=== PATIENT | male | born 1975 | race African-American/Black ===

== ENCOUNTER 2018-03-17 10:42 | Emergency (ER) | payer OTHER ==
[~2018-03-17] VITALS: Ht 185.4 cm; Wt 80.0 kg
[~2018-03-17 10:42] MED LIST: ALD100 PO; FURO40TA5 MT; L25 PO
[2018-03-17] MEDS ORDERED: benazepril (11:22)
[2018-03-17] MEDS ORDERED: carvedilol (11:22)
[2018-03-17] MEDS ORDERED: KETOROLAC 60MG/2ML VIAL IM ONE (11:45)
[2018-03-17 12:33] VITALS: BP 152/105
[2018-03-17 12:34] LABS: CHLORIDE 105 mEq/L (98-107)
== END 2018-03-17 14:28 | disposition home or self-care (01) ==
LOC: ER 10:42
DX: M10.9 Gout, unspecified (principal); I10 Essential (primary) hypertension; E11.9 Type 2 diabetes mellitus without complications; F17.200 Nicotine dependence, unspecified, uncomplicated; Z79.899 Other long term (current) drug therapy
CPT/HCPCS: 36415; 73630; 80048; 84550; 96372; 99284; J1885

== ENCOUNTER 2018-03-25 08:29 | Emergency (ER) | payer OTHER ==
[~2018-03-25] VITALS: Ht 185.4 cm; Wt 82.0 kg
[~2018-03-25 08:29] MED LIST changes: +benazepril; +carvedilol
[2018-03-25] MEDS ORDERED: ONDANSETRON HCL 4MG/2ML INJ IV STA (10:04)
[2018-03-25] MEDS ORDERED: CLONIDINE 0.1MG TABLET PO ONE (10:15)
[2018-03-25 10:28] LABS: EOSINOPHILS % 0.4 % (0.0-5.0); HEMATOCRIT. 46.9 % (42.0-52.0); HEMOGLOBIN. 15.9 g/dL (14.0-18.0); LYMPHOCYTES % 33.4 % (20.0-50.0); MEAN CORPUSCULAR VOLUME 103.6 fL (80.0-94.0); MEAN PLATELET VOLUME 9.2 fl (7.4-10.4); MONOCYTES % 12.6 % (2.0-8.0); NEUTROPHILS % 52.6 % (40.0-76.0); PLATELET 176 x1000/uL (130-400); RED BLOOD CELL COUNT 4.53 mill/uL (4.7-6.1); RED CELL DISTRIBUTION WIDTH 13.6 % (11.6-14.6)
[2018-03-25 10:34] LABS: CLARITY URINE CLEAR (CLEAR); COLOR URINE DARK YELLOW (YELLOW); KETONES URINE NEGATIVE (NEGATIVE); LEUKOCYTE ESTERASE URINE TRACE (NEGATIVE); NITRITE URINE POSITIVE (NEGATIVE); OCCULT BLOOD URINE NEGATIVE (NEGATIVE); PROTEIN URINE 2+ (NEGATIVE); SPECIFIC GRAVITY URINE 1.023 (1.005-1.030)
[2018-03-25 10:35] LABS: CHLORIDE 102 mEq/L (98-107)
[2018-03-25] MEDS ORDERED: SULFAMETHOXAZOLE/TRIMETHOPRIM 800/160MG TABLET PO ONE (11:00)
[2018-03-25] MEDS ORDERED: FUROSEMIDE 20MG/2ML VIAL IVP ONE (11:00)
[2018-03-25] MEDS ORDERED: ASPIRIN 81MG TABLET PO ONE (11:00)
[2018-03-25] MEDS ORDERED: FUROSEMIDE 40MG/4ML VIAL IVP SCH ×2 (13:15→17:00)
[2018-03-25] MEDS ORDERED: CLONIDINE 0.1MG TABLET PO PRN (13:15)
[2018-03-25] MEDS ORDERED: CEFTRIAXONE 1 G PREMIX 50 ML IV SCH (13:15)
[2018-03-25] MEDS ORDERED: POTASSIUM CHLORIDE 20MEQ TABLET SR PO SCH (13:15)
[2018-03-25 15:23] VITALS: BP 130/90
[2018-03-25 20:22] LABS: *BARBITURATES SCREEN URINE NEGATIVE (NEGATIVE)
[2018-03-25 20:23] LABS: *BENZODIAZEPINES SCREEN URINE NEGATIVE (NEGATIVE); *COCAINE SCREEN URINE NEGATIVE (NEGATIVE); CANNABINOID URINE SCREEN NEGATIVE (NEGATIVE); METHADONE URINE SCREEN NEGATIVE (NEGATIVE); OPIATES URINE SCREEN NEGATIVE (NEGATIVE); PHENCYCLIDINE URINE SCREEN NEGATIVE (NEGATIVE)
[2018-03-25 20:24] LABS: *AMPHETAMINES SCREEN URINE NEGATIVE (NEGATIVE)
[2018-03-25] MEDS ORDERED: CARVEDILOL 6.25 MG TABLET PO SCH (21:00)
[2018-03-26] MEDS ORDERED: ASPIRIN 81MG EC TABLET PO SCH (09:00)
[2018-03-26] MEDS ORDERED: LOSARTAN POTASSIUM 25 MG TABLET PO SCH (09:00)
== END 2018-03-25 18:22 | disposition left against medical advice (07) ==
LOC: ER 08:29 → EDBEDREQTM 11:26 → EDBEDREQ 11:26 → ENRESERV 15:30 → CANRESERV 15:30 → CANBEDREQ 15:47 → ER 18:22
DX: I11.0 Hypertensive heart disease with heart failure (principal); I50.9 Heart failure, unspecified; N39.0 Urinary tract infection, site not specified; E11.9 Type 2 diabetes mellitus without complications; F17.200 Nicotine dependence, unspecified, uncomplicated; Z79.899 Other long term (current) drug therapy
CPT/HCPCS: 36415; 71045; 80053; 80061; 80305; 81003; 83690; 83880; 84443; 84484; 85025; 87086; 93005; 93970; 96374; 96375; 99284; J1940; J2405

== ENCOUNTER 2018-06-25 20:58 | Emergency (ER) | payer OTHER ==
[~2018-06-25] VITALS: Ht 185.4 cm; Wt 87.0 kg
[~2018-06-25 20:58] MED LIST changes: -carvedilol; +carvedilol PO
[2018-06-25] MEDS ORDERED: INDOMETHACIN 50MG CAPSULE PO ONE (23:00)
[2018-06-25 23:12] VITALS: BP 138/90
== END 2018-06-25 23:19 | disposition home or self-care (01) ==
LOC: ER 20:58
DX: M10.9 Gout, unspecified (principal); E11.9 Type 2 diabetes mellitus without complications; I50.9 Heart failure, unspecified; F17.210 Nicotine dependence, cigarettes, uncomplicated
CPT/HCPCS: 99283

== ENCOUNTER 2018-07-04 10:38 | Inpatient (IN) | payer OTHER ==
[~2018-07-04] VITALS: Ht 185.4 cm; Wt 86.2 kg
[2018-07-04] MEDS ORDERED: FUROSEMIDE 40MG/4ML VIAL IV ONE (12:30)
[2018-07-04] MEDS ORDERED: ASPIRIN 81MG TABLET PO ONE (12:30)
[2018-07-04] MEDS ORDERED: NITROGLYCERIN 0.4MG TABLET SL SL PRN (12:30)
[2018-07-04 12:45] LABS: BASOPHILS % 0.8 % (0.0-2.0); EOSINOPHILS % 0.4 % (0.0-5.0); HEMATOCRIT. 43.2 % (42.0-52.0); HEMOGLOBIN. 14.2 g/dL (14.0-18.0); LYMPHOCYTES % 28.7 % (20.0-50.0); MEAN CORPUSCULAR VOLUME 100.3 fL (80.0-94.0); MONOCYTES % 11.7 % (2.0-8.0); NEUTROPHILS % 58.4 % (40.0-76.0); PLATELET 163 x1000/uL (130-400); RED BLOOD CELL COUNT 4.31 mill/uL (4.7-6.1); RED CELL DISTRIBUTION WIDTH 17.9 % (11.6-14.6)
[2018-07-04 12:50] LABS: CHLORIDE 106 mEq/L (98-107)
[2018-07-04 12:53] LABS: INR 1.4; PARTIAL THROMBOPLASTIN TIME 25.2 sec (23.4-31.0); PROTHROMBIN TIME 14.2 sec (9.1-11.1)
[2018-07-04] MEDS ORDERED: IOHEXOL-350 100 ML BOTTLE ONE (16:57)
[2018-07-04] MEDS ORDERED: ZOLPIDEM TARTRATE 5MG TABLET PO PRN (17:00)
[2018-07-04] MEDS ORDERED: ONDANSETRON HCL 4MG/2ML INJ IV PRN (17:00)
[2018-07-04] MEDS ORDERED: ACETAMINOPHEN 325MG TABLET PO PRN (17:00)
[2018-07-04] MEDS: FUROSEMIDE 40MG/4ML VIAL IVP SCH (17:50)
[2018-07-04 20:00] VITALS: BP 135/96
[2018-07-04 22:00] VITALS: BP 135/96
[2018-07-04] MEDS: CARVEDILOL 6.25 MG TABLET PO SCH (22:29)
[2018-07-04] MEDS ORDERED: ENOXAPARIN 40MG/0.4ML SYR SUBCUT SCH (22:30)
[2018-07-04] MEDS ORDERED: INDO50CA15 PO (23:32)
[2018-07-04] MEDS ORDERED: FURO-152 PO (23:32)
[2018-07-05 06:55] LABS: BASOPHILS % 0.9 % (0.0-2.0); EOSINOPHILS % 1.1 % (0.0-5.0); HEMOGLOBIN. 13.4 g/dL (14.0-18.0); LYMPHOCYTES % 33.9 % (20.0-50.0); MEAN CORPUSCULAR HEMOGLOBIN 33.3 pg (28.0-32.0); MEAN CORPUSCULAR VOLUME 99.6 fL (80.0-94.0); MEAN PLATELET VOLUME 8.3 fl (7.4-10.4); MONOCYTES % 10.6 % (2.0-8.0); NEUTROPHILS % 53.5 % (40.0-76.0); PLATELET 157 x1000/uL (130-400); RED BLOOD CELL COUNT 4.02 mill/uL (4.7-6.1); RED CELL DISTRIBUTION WIDTH 18.4 % (11.6-14.6)
[2018-07-05] MEDS: FUROSEMIDE 40MG/4ML VIAL IVP SCH (07:13)
[2018-07-05 07:21] LABS: CHLORIDE 100 mEq/L (98-107)
[2018-07-05 08:00] VITALS: BP 110/61
[2018-07-05] MEDS ORDERED: ASPIRIN 81MG TABLET PO SCH (09:00)
[2018-07-05] MEDS ORDERED: LOSARTAN POTASSIUM 25 MG TABLET PO SCH (09:00)
[2018-07-05] MEDS: CARVEDILOL 6.25 MG TABLET PO SCH (09:00)
[2018-07-05] MEDS ORDERED: NICOTINE 7MG PATCH TD SCH (12:07)
[2018-07-05 13:18] VITALS: BP 138/100
== END 2018-07-05 12:50 | disposition left against medical advice (07) | DRG 203 ==
LOC: ER 10:38 → 5WST 16:48 → ENRESERV 20:26 → 5WST 21:40
PROVIDERS: ADMIT Internal Medicine; ATTEND Internal Medicine
DX: M94.0 Chondrocostal junction syndrome [Tietze] (principal); I50.23 Acute on chronic systolic (congestive) heart failure; I27.20 Pulmonary hypertension, unspecified; I42.0 Dilated cardiomyopathy; I08.3 Combined rheumatic disorders of mitral, aortic and tricuspid valves; I11.0 Hypertensive heart disease with heart failure; E11.9 Type 2 diabetes mellitus without complications; F19.10 Other psychoactive substance abuse, uncomplicated; Z53.21 Procedure and treatment not carried out due to patient leaving prior to being seen by health care provider; F10.10 Alcohol abuse, uncomplicated; F17.210 Nicotine dependence, cigarettes, uncomplicated; Z82.49 Family history of ischemic heart disease and other diseases of the circulatory system; Z71.6 Tobacco abuse counseling; Z91.19 Patient's noncompliance with other medical treatment and regimen
CPT/HCPCS: 36415; 71045; 71275; 80048; 83036; 83880; 84484; 85379; 93005; 93306; 96365; 96375; 99285; J1650; J1940; Q9967

== ENCOUNTER 2019-04-04 03:55 | Inpatient (IN) | payer MEDICAID, OTHER ==
[~2019-04-04] VITALS: Ht 185.4 cm; Wt 81.6 kg
[~2019-04-04 03:55] MED LIST changes: +ASPI-1158 MT; +FURO-152 PO; -FURO40TA5 MT; -L25 PO; +LISI-604 MT; +REV20 MT; +SPIR25TA MT; -benazepril
[2019-04-04] MEDS ORDERED: FUROSEMIDE 40MG/4ML VIAL IV ONE (06:30)
[2019-04-04] MEDS ORDERED: NITROGLYCERIN 0.4MG TABLET SL SL PRN (06:30)
[2019-04-04] MEDS ORDERED: ASPIRIN 81MG TABLET PO ONE (06:30)
[2019-04-04 07:30] LABS: BASOPHILS % 1.2 % (0.0-2.0); EOSINOPHILS % 1.1 % (0.0-5.0); HEMATOCRIT. 46.9 % (42.0-52.0); HEMOGLOBIN. 15.9 g/dL (14.0-18.0); MEAN CORPUSCULAR HEMOGLOBIN 33.3 pg (28.0-32.0); MEAN CORPUSCULAR VOLUME 98.2 fL (80.0-94.0); MEAN PLATELET VOLUME 8.2 fl (7.4-10.4); MONOCYTES % 9.3 % (2.0-8.0); NEUTROPHILS % 49.4 % (40.0-76.0); PLATELET 179 x1000/uL (130-400); RED BLOOD CELL COUNT 4.78 mill/uL (4.7-6.1); RED CELL DISTRIBUTION WIDTH 19.5 % (11.6-14.6)
[2019-04-04 07:36] LABS: CHLORIDE 106 mEq/L (98-107)
[2019-04-04 07:39] LABS: ETHANOL BLOOD 183 mg/dL
[2019-04-04] MEDS ORDERED: POTASSIUM CHLORIDE 20MEQ TABLET SR PO ONE (09:30)
[2019-04-04 09:46] LABS: *AMPHETAMINES SCREEN URINE NEGATIVE (NEGATIVE); *BARBITURATES SCREEN URINE NEGATIVE (NEGATIVE); *BENZODIAZEPINES SCREEN URINE NEGATIVE (NEGATIVE); *COCAINE SCREEN URINE NEGATIVE (NEGATIVE)
[2019-04-04 09:47] LABS: CANNABINOID URINE SCREEN NEGATIVE (NEGATIVE); METHADONE URINE SCREEN NEGATIVE (NEGATIVE); OPIATES URINE SCREEN NEGATIVE (NEGATIVE); PHENCYCLIDINE URINE SCREEN NEGATIVE (NEGATIVE)
[2019-04-04 10:50] VITALS: BP 117/87
[2019-04-04] MEDS ORDERED: GUAIFENESIN 200MG/10ML SUGAR FREE UDC PO PRN (15:30)
[2019-04-04] MEDS ORDERED: ACETAMINOPHEN 650MG SUPP PR PRN (15:30)
[2019-04-04] MEDS ORDERED: CLONIDINE 0.1MG TABLET PO PRN (15:30)
[2019-04-04] MEDS ORDERED: DOCUSATE SODIUM 100MG CAPSULE PO PRN (15:30)
[2019-04-04] MEDS ORDERED: ACETAMINOPHEN 650MG/20.3ML UDC GT PRN (15:30)
[2019-04-04] MEDS ORDERED: IPRATROPIUM/ALBUTEROL 0.5-3(2.5)MG/3ML NEB NEB PRN (15:30)
[2019-04-04] MEDS ORDERED: NA PHOS,M-B/NA PHOS,DI-BA ENEMA 118ML PR PRN (15:30)
[2019-04-04] MEDS ORDERED: MAGNESIUM/ALUMINUM HYDROXIDE/SIMETHICONE 30ML UDC PO PRN (15:30)
[2019-04-04] MEDS ORDERED: DIPHENHYDRAMINE 50MG/ML VIAL IV PRN (15:30)
[2019-04-04] MEDS ORDERED: ONDANSETRON HCL 4MG/2ML INJ IV PRN (15:30)
[2019-04-04] MEDS: FUROSEMIDE 40MG/4ML VIAL IV SCH (16:55)
[2019-04-04] MEDS: THIAMINE HCL 100MG TABLET PO SCH (16:55)
[2019-04-04] MEDS: ENOXAPARIN 40MG/0.4ML SYR SUBCUT SCH ×2 (16:56→16:57)
[2019-04-04 20:00] VITALS: BP 130/93
[2019-04-04] MEDS: HYDROCODONE/ACETAMINOPHEN 5/325MG TABLET PO PRN (21:01)
[2019-04-04] MEDS: SODIUM CHLORIDE 0.9% INJ 3ML FLUSH IVF SCH (22:00)
[2019-04-05] VITALS (7 sets, daily range): BP systolic 122–142; BP diastolic 77–104
[2019-04-05] MEDS: FUROSEMIDE 40MG/4ML VIAL IV SCH ×2 (07:15→17:53)
[2019-04-05 07:17] LABS: EOSINOPHILS % 1.3 % (0.0-5.0); HEMATOCRIT. 48.4 % (42.0-52.0); HEMOGLOBIN. 16.2 g/dL (14.0-18.0); LYMPHOCYTES % 20.7 % (20.0-50.0); MEAN CORPUSCULAR HEMOGLOBIN 32.4 pg (28.0-32.0); MEAN PLATELET VOLUME 8.6 fl (7.4-10.4); MONOCYTES % 13.3 % (2.0-8.0); NEUTROPHILS % 63.7 % (40.0-76.0); PLATELET 187 x1000/uL (130-400); RED BLOOD CELL COUNT 4.99 mill/uL (4.7-6.1); RED CELL DISTRIBUTION WIDTH 19.4 % (11.6-14.6)
[2019-04-05 07:30] LABS: CHLORIDE 102 mEq/L (98-107)
[2019-04-05 07:42] LABS: LDL CHOLESTEROL 90 mg/dL (5-100)
[2019-04-05 07:43] LABS: HDL CHOLESTEROL 57 mg/dL (40-59)
[2019-04-05] MEDS ORDERED: POTASSIUM CHLORIDE 20MEQ TABLET SR PO SCH (08:30)
[2019-04-05] MEDS: FOLIC ACID 1MG TABLET PO SCH (08:36)
[2019-04-05] MEDS: THIAMINE HCL 100MG TABLET PO SCH (08:39)
[2019-04-05] MEDS: SODIUM CHLORIDE 0.9% INJ 3ML FLUSH IVF SCH ×3 (08:41→20:38)
[2019-04-05] MEDS ORDERED: ENOXAPARIN 40MG/0.4ML SYR SUBCUT SCH (14:00)
[2019-04-05] MEDS: ASPIRIN 81MG TABLET PO SCH (14:07)
[2019-04-05 14:40] LABS: T4 FREE 1.08 ng/dL (0.76-1.46)
[2019-04-05 16:56] LABS: CREATINE KINASE MB FRACTION 1.5 ng/mL (0.5-3.6)
[2019-04-05] MEDS ORDERED: MAGNESIUM 2 G PREMIX 50 ML IV NR (18:30)
[2019-04-05] MEDS: CARVEDILOL 12.5MG TABLET PO SCH (20:37)
[2019-04-05] MEDS: HYDROCODONE/ACETAMINOPHEN 5/325MG TABLET PO PRN (20:38)
[2019-04-06] VITALS: BP 115/74
[2019-04-06 01:41] LABS: CREATINE KINASE MB FRACTION 1.2 ng/mL (0.5-3.6)
[2019-04-06 03:58] LABS: CLARITY URINE CLEAR (CLEAR); COLOR URINE DARK YELLOW (YELLOW); KETONES URINE NEGATIVE (NEGATIVE); LEUKOCYTE ESTERASE URINE TRACE (NEGATIVE); NITRITE URINE NEGATIVE (NEGATIVE); OCCULT BLOOD URINE NEGATIVE (NEGATIVE); PH URINE 5.5 (4.5-8.0); PROTEIN URINE NEGATIVE (NEGATIVE); SPECIFIC GRAVITY URINE 1.023 (1.005-1.030)
[2019-04-06 04:00] VITALS: BP 108/73
[2019-04-06 04:10] LABS: *AMPHETAMINES SCREEN URINE NEGATIVE (NEGATIVE); *BARBITURATES SCREEN URINE NEGATIVE (NEGATIVE); *BENZODIAZEPINES SCREEN URINE NEGATIVE (NEGATIVE); *COCAINE SCREEN URINE NEGATIVE (NEGATIVE); CANNABINOID URINE SCREEN NEGATIVE (NEGATIVE); METHADONE URINE SCREEN NEGATIVE (NEGATIVE); OPIATES URINE SCREEN PRESUMTIVE POSITIVE (NEGATIVE); PHENCYCLIDINE URINE SCREEN NEGATIVE (NEGATIVE)
[2019-04-06] MEDS: ACETAMINOPHEN 325MG TABLET PO PRN ×2 (05:25→21:25)
[2019-04-06] MEDS: SODIUM CHLORIDE 0.9% INJ 3ML FLUSH IVF SCH ×2 (05:25→13:20)
[2019-04-06] MEDS: FUROSEMIDE 40MG/4ML VIAL IV SCH ×2 (06:40→16:23)
[2019-04-06] MEDS ORDERED: REGADENOSON 0.4 MG/5 ML IV ONE (07:00)
[2019-04-06 08:00] VITALS: BP 106/79
[2019-04-06] MEDS: ASPIRIN 81MG TABLET PO SCH ×2 (08:29→09:13)
[2019-04-06] MEDS: SPIRONOLACTONE 25MG TABLET PO SCH (08:29)
[2019-04-06] MEDS: CARVEDILOL 12.5MG TABLET PO SCH ×2 (08:29→21:26)
[2019-04-06] MEDS: THIAMINE HCL 100MG TABLET PO SCH ×2 (08:30→09:13)
[2019-04-06] MEDS: FOLIC ACID 1MG TABLET PO SCH ×2 (08:30→09:13)
[2019-04-06 08:34] LABS: CREATINE KINASE MB FRACTION 1.1 ng/mL (0.5-3.6)
[2019-04-06 12:00] VITALS: BP 103/70
[2019-04-06] MEDS ORDERED: FURO-152 PO (13:05)
[2019-04-06 15:18] LABS: BASOPHILS % 1.3 % (0.0-2.0); EOSINOPHILS % 0.9 % (0.0-5.0); HEMATOCRIT. 48.4 % (42.0-52.0); HEMOGLOBIN. 16.2 g/dL (14.0-18.0); LYMPHOCYTES % 15.9 % (20.0-50.0); MEAN CORPUSCULAR HEMOGLOBIN 32.6 pg (28.0-32.0); MEAN CORPUSCULAR VOLUME 97.7 fL (80.0-94.0); MONOCYTES % 13.7 % (2.0-8.0); NEUTROPHILS % 68.2 % (40.0-76.0); PLATELET 190 x1000/uL (130-400); RED BLOOD CELL COUNT 4.96 mill/uL (4.7-6.1); RED CELL DISTRIBUTION WIDTH 19.4 % (11.6-14.6)
[2019-04-06 15:21] LABS: CHLORIDE 100 mEq/L (98-107)
[2019-04-06 16:16] VITALS: BP 115/81
[2019-04-06] MEDS: LOSARTAN POTASSIUM 25 MG TABLET PO SCH (16:23)
[2019-04-06] MEDS: ENOXAPARIN 40MG/0.4ML SYR SUBCUT SCH (16:24)
[2019-04-06 20:00] VITALS: BP 117/68
[2019-04-06 20:29] LABS: CLARITY URINE CLEAR (CLEAR); COLOR URINE DARK YELLOW (YELLOW); KETONES URINE NEGATIVE (NEGATIVE); LEUKOCYTE ESTERASE URINE NEGATIVE (NEGATIVE); NITRITE URINE NEGATIVE (NEGATIVE); OCCULT BLOOD URINE NEGATIVE (NEGATIVE); PROTEIN URINE NEGATIVE (NEGATIVE); SPECIFIC GRAVITY URINE 1.019 (1.005-1.030)
[2019-04-07] VITALS (7 sets, daily range): BP systolic 92–115; BP diastolic 64–78
[2019-04-07] MEDS: SODIUM CHLORIDE 0.9% INJ 3ML FLUSH IVF SCH ×4 (02:15→21:30)
[2019-04-07] MEDS: FUROSEMIDE 40MG/4ML VIAL IV SCH ×2 (06:29→16:32)
[2019-04-07] MEDS: THIAMINE HCL 100MG TABLET PO SCH (08:58)
[2019-04-07] MEDS: CARVEDILOL 12.5MG TABLET PO SCH ×2 (08:59→20:55)
[2019-04-07] MEDS: SPIRONOLACTONE 25MG TABLET PO SCH (08:59)
[2019-04-07] MEDS: FOLIC ACID 1MG TABLET PO SCH (08:59)
[2019-04-07] MEDS: ASPIRIN 81MG TABLET PO SCH (08:59)
[2019-04-07] MEDS: LOSARTAN POTASSIUM 25 MG TABLET PO SCH (08:59)
[2019-04-07] MEDS: ENOXAPARIN 40MG/0.4ML SYR SUBCUT SCH (16:33)
[2019-04-07] MEDS: HYDROCODONE/ACETAMINOPHEN 5/325MG TABLET PO PRN (16:33)
[2019-04-07] MEDS ORDERED: COLC0.6C3 MT ×2 (20:15→20:22)
[2019-04-07] MEDS ORDERED: FURO-152 PO (20:19)
[2019-04-07] MEDS ORDERED: LOSA25TA3 PO (20:27)
[2019-04-07] MEDS ORDERED: ASPI-1160 PO (20:27)
[2019-04-07] MEDS ORDERED: COLCHICINE 0.6MG TABLET PO NR (22:30)
== END 2019-04-07 22:27 | disposition home or self-care (01) | DRG 425 ==
LOC: ER 03:55 → 5WST 09:18 → ENRESERV 09:57
PROVIDERS: ADMIT Family Medicine; ATTEND Family Medicine
DX: E87.6 Hypokalemia (principal); I50.33 Acute on chronic diastolic (congestive) heart failure; I42.9 Cardiomyopathy, unspecified; E44.1 Mild protein-calorie malnutrition; I11.0 Hypertensive heart disease with heart failure; E11.9 Type 2 diabetes mellitus without complications; F17.210 Nicotine dependence, cigarettes, uncomplicated; I50.9 Heart failure, unspecified; F10.10 Alcohol abuse, uncomplicated; Y90.6 Blood alcohol level of 120-199 mg/100 ml; Z91.19 Patient's noncompliance with other medical treatment and regimen; Z79.899 Other long term (current) drug therapy; Z79.82 Long term (current) use of aspirin
CPT/HCPCS: 36415; 71045; 73630; 80053; 80061; 80305; 80320; 81003; 82550; 82553; 83036; 83735; 83880; 84132; 84439; 84443; 84484; 85025; 85379; 87804; 93005; 93970; 96374; 99285; J1650; J1940; J3475; G0480

== ENCOUNTER 2019-06-08 12:09 | Emergency (ER) | payer MEDICAID ==
[~2019-06-08] VITALS: Ht 185.4 cm; Wt 84.0 kg
[~2019-06-08 12:09] MED LIST changes: -ALD100 PO; -ASPI-1158 MT; +ASPI-1160 PO; +COLC0.6C3 MT; -LISI-604 MT; +LOSA25TA3 PO; -REV20 MT
[2019-06-08 13:30] VITALS: BP 111/87
== END 2019-06-08 16:28 | disposition home or self-care (01) ==
LOC: ER 13:03
DX: J06.9 Acute upper respiratory infection, unspecified (principal)
CPT/HCPCS: 71045; 99283

== ENCOUNTER 2019-07-02 14:51 | Emergency (ER) | payer MEDICAID ==
[~2019-07-02] VITALS: Ht 185.4 cm; Wt 84.0 kg
[2019-07-02 15:11] VITALS: BP 125/86
[2019-07-02] MEDS ORDERED: AMOX-494 MT (15:11)
== END 2019-07-02 16:58 | disposition left against medical advice (07) ==
LOC: ER 14:51
DX: Z53.21 Procedure and treatment not carried out due to patient leaving prior to being seen by health care provider (principal)

== ENCOUNTER 2019-07-02 17:51 | Emergency (ER) | payer MEDICAID ==
[~2019-07-02] VITALS: Ht 185.4 cm; Wt 86.0 kg
[~2019-07-02 17:51] MED LIST changes: +AMOX-494 MT
[2019-07-02 17:57] VITALS: BP 124/88
[2019-07-02] MEDS ORDERED: ALBUTEROL (0.083%) 2.5MG/3ML NEB HHN STA (21:20)
[2019-07-02] MEDS ORDERED: IPRATROPIUM BROMIDE (0.02%) 0.5MG/2.5ML NEB HHN STA (21:20)
== END 2019-07-02 22:05 | disposition home or self-care (01) ==
LOC: ER 17:51
DX: J20.9 Acute bronchitis, unspecified (principal); I11.0 Hypertensive heart disease with heart failure; I50.9 Heart failure, unspecified
CPT/HCPCS: 71045; 94640; 99283; Z7610

== ENCOUNTER 2019-07-16 13:43 | Inpatient (IN) | payer MEDICAID, OTHER ==
[~2019-07-16] VITALS: Ht 185.4 cm; Wt 88.5 kg
[~2019-07-16 13:43] MED LIST changes: -AMOX-494 MT; -SPIR25TA MT
[2019-07-16 17:29] LABS: BASOPHILS % 1.2 % (0.0-2.0); EOSINOPHILS % 0.3 % (0.0-5.0); HEMATOCRIT. 46.7 % (42.0-52.0); HEMOGLOBIN. 15.5 g/dL (14.0-18.0); LYMPHOCYTES % 18.9 % (20.0-50.0); MEAN CORPUSCULAR HEMOGLOBIN 32.9 pg (28.0-32.0); MEAN CORPUSCULAR VOLUME 98.9 fL (80.0-94.0); MEAN PLATELET VOLUME 8.3 fl (7.4-10.4); MONOCYTES % 10.9 % (2.0-8.0); NEUTROPHILS % 68.7 % (40.0-76.0); PLATELET 214 x1000/uL (130-400); RED BLOOD CELL COUNT 4.72 mill/uL (4.7-6.1)
[2019-07-16 17:33] LABS: CHLORIDE 102 mEq/L (98-107)
[2019-07-16] MEDS ORDERED: FUROSEMIDE 20MG/2ML VIAL IVP NR (19:15)
[2019-07-16] MEDS ORDERED: ASPIRIN 325MG EC TABLET PO NR (19:45)
[2019-07-16 21:50] VITALS: BP 135/103
[2019-07-16] MEDS ORDERED: DEXTROSE 50% WATER 50ML SYRINGE IV PRN (23:45)
[2019-07-17] VITALS: BP 140/98
[2019-07-17] MEDS ORDERED: ENOXAPARIN 40MG/0.4ML SYR SUBCUT SCH
[2019-07-17 00:59] LABS: CREATINE KINASE MB FRACTION 2.4 ng/mL (0.5-3.6)
[2019-07-17 04:00] VITALS: BP 135/99
[2019-07-17 05:20] LABS: *AMPHETAMINES SCREEN URINE NEGATIVE (NEGATIVE); *BARBITURATES SCREEN URINE NEGATIVE (NEGATIVE); *BENZODIAZEPINES SCREEN URINE NEGATIVE (NEGATIVE); *COCAINE SCREEN URINE NEGATIVE (NEGATIVE); METHADONE URINE SCREEN NEGATIVE (NEGATIVE); OPIATES URINE SCREEN NEGATIVE (NEGATIVE)
[2019-07-17 05:21] LABS: CANNABINOID URINE SCREEN NEGATIVE (NEGATIVE); PHENCYCLIDINE URINE SCREEN NEGATIVE (NEGATIVE)
[2019-07-17 06:36] LABS: BASOPHILS % 0.6 % (0.0-2.0); EOSINOPHILS % 0.5 % (0.0-5.0); HEMATOCRIT. 45.3 % (42.0-52.0); HEMOGLOBIN. 14.9 g/dL (14.0-18.0); LYMPHOCYTES % 24.6 % (20.0-50.0); MEAN CORPUSCULAR HEMOGLOBIN 32.8 pg (28.0-32.0); MEAN CORPUSCULAR VOLUME 99.5 fL (80.0-94.0); MEAN PLATELET VOLUME 8.2 fl (7.4-10.4); MONOCYTES % 11.1 % (2.0-8.0); NEUTROPHILS % 63.2 % (40.0-76.0); PLATELET 184 x1000/uL (130-400); RED BLOOD CELL COUNT 4.55 mill/uL (4.7-6.1); RED CELL DISTRIBUTION WIDTH 17.3 % (11.6-14.6)
[2019-07-17 07:25] LABS: CHLORIDE 102 mEq/L (98-107)
[2019-07-17 07:41] LABS: LDL CHOLESTEROL 74 mg/dL (5-100)
[2019-07-17 07:44] LABS: HDL CHOLESTEROL 41 mg/dL (40-59)
[2019-07-17] MEDS: INSULIN LISPRO 100 UNITS/ML SUBCUT SCH ×3 (07:47→18:10)
[2019-07-17] MEDS: BLOOD SUGAR DIAGNOSTIC STRIP TEST SCH ×3 (07:47→17:40)
[2019-07-17 08:00] VITALS: BP 148/108
[2019-07-17 08:15] LABS: CREATINE KINASE MB FRACTION 1.8 ng/mL (0.5-3.6)
[2019-07-17] MEDS ORDERED: FUROSEMIDE 40MG/4ML VIAL IVP SCH (09:00)
[2019-07-17] MEDS ORDERED: LOSARTAN POTASSIUM 25 MG TABLET PO SCH (17:00)
[2019-07-17] MEDS ORDERED: ATOR20TA65 MT (17:11)
[2019-07-17 18:00] VITALS: BP 129/93
[2019-07-17 18:56] LABS: CREATINE KINASE MB FRACTION 2.4 ng/mL (0.5-3.6)
[2019-07-17] MEDS ORDERED: CARVEDILOL 3.125 MG TABLET PO SCH (21:00)
[2019-07-18] MEDS ORDERED: ASPIRIN 81MG TABLET PO SCH (09:00)
== END 2019-07-17 19:20 | disposition home or self-care (01) | DRG 133 ==
LOC: ER 13:43 → 7WST 19:39 → ENRESERV 20:43
PROVIDERS: ADMIT Internal Medicine; ATTEND Internal Medicine
DX: J96.00 Acute respiratory failure, unspecified whether with hypoxia or hypercapnia (principal); I50.23 Acute on chronic systolic (congestive) heart failure; I27.21 Secondary pulmonary arterial hypertension; I42.0 Dilated cardiomyopathy; I08.1 Rheumatic disorders of both mitral and tricuspid valves; D72.821 Monocytosis (symptomatic); E11.9 Type 2 diabetes mellitus without complications; F10.10 Alcohol abuse, uncomplicated; I11.0 Hypertensive heart disease with heart failure; R07.81 Pleurodynia; Z88.8 Allergy status to other drugs, medicaments and biological substances; Z79.82 Long term (current) use of aspirin; Z79.899 Other long term (current) drug therapy; Z72.0 Tobacco use
CPT/HCPCS: 36415; 71045; 80048; 80053; 80061; 80305; 82550; 82553; 82962; 83036; 83735; 83880; 84443; 84484; 85025; 87420; 87804; 93005; 99285; J1650; J1815; J1940